=== PATIENT | male | born 1940 | race Caucasian/White ===

== ENCOUNTER → 2017-12-19 16:23 | Outpatient (CLI) | payer MEDICARE, BC, SELFPAY ==
[2017-12-19 17:28] LABS: Blood Urea Nitrogen 20 mg/dL (9-20); Calcium 9.8 mg/dL (8.4-10.2); Carbon Dioxide 32 mmol/L (22-32); Chloride 98 mmol/L (98-107); Estimated Glomerular Filt Rate > 60.0 mL/min (>60); Glucose 101 mg/dL (80-110); HEMOLYSIS < 15 (0-50); Potassium 5.3 mmol/L (3.4-5.1); Sodium 139 mmol/L (137-145)
== END ==
PROVIDERS: Visit Provider Urology
DX: N30.90 Cystitis, unspecified without hematuria (principal)
CPT/HCPCS: 36415; 80048

== ENCOUNTER → 2017-12-21 08:10 | Outpatient (CLI) | payer MEDICARE, BC, SELFPAY ==
--- NOTE | 2017-12-21 | DI.CT.S_ITS ---
PROCEDURE: CT ABDOMEN PELVIS WO/W CON INDICATIONS: CYSTITIS, BLADDER INECTIONS TECHNIQUE: Optional 5 mm thick noncontrast images acquired from the diaphragm to the symphysis pubis. After the administration of intravenous contrast, 5 mm thick images acquired from the diaphragm to the symphysis pubis after a 10-minute delay. 2 mm thick coronal and sagittal reformats were then performed of the kidneys and ureters. For radiation dose reduction, the following was used: automated exposure control, adjustment of mA and/or kV according to patient size. COMPARISON: [facility], CR, XR PELVIS W LATERAL HIP RT, 06/19/2016, 7:40. FINDINGS: Image quality: There is streak artifact seen through the pelvis. Additional reformatted images were performed of the pelvis, limiting the streak artifact, however. Lung bases: Lung bases are clear. Heart size is normal. A small hiatal hernia is incidentally noted. Urinary system: Both kidneys are normal in size, without hydronephrosis or nephrolithiasis on pre-contrast images. No perinephric fat stranding. There is normal bilateral renal enhancement. Renal calyces appear normal in morphology when filled with contrast. Opacified portions of both ureters demonstrate normal caliber. Mild bladder wall thickening is seen. No calcified bladder stones are seen. Other solid organs: Liver is normal in size and enhancement. Gallbladder wall is not thickened. Biliary system is non dilated. Pancreas enhances normally. Spleen is normal in size and enhancement. No adrenal nodules. Peritoneum and bowel: Bowel loops demonstrate normal wall thickness and caliber. No free fluid or air. Diverticulosis is seen, without findings of active diverticulitis. Nodes and vessels: No retroperitoneal or mesenteric adenopathy by size criteria. Aorta and inferior vena cava are normal in size. Abdominal wall: A mild periumbilical hernia is seen, containing fat. Pelvis: No pathologic free pelvic fluid. No significant inguinal hernias or adenopathy. Injection granulomas are seen involving the buttocks. Bones: No suspicious bony lesions. No vertebral body compression fractures. 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 Age-appropriate bony degenerative changes are seen, which are most prominent at the L4-L5 level. There is partial fusion of the sacroiliac joints seen, right worse than left. IMPRESSION: Mild urinary bladder wall thickening is seen. Please correlate with cystitis versus bladder obstruction. No stones or hydronephrosis can be seen. No kidney masses are seen. Incidental note is made of: Small hiatal hernia Fat-containing periumbilical hernia Diverticulosis is seen, without findings of active diverticulitis. Focal L4-L5 degenerative change Bilateral hip arthroplasties Injection granulomas Dictated by: Sly Brown M.D. on 12/21/2017 at 9:02 Approved by: Sly Brown M.D. on 12/21/2017 at 9:08
== END ==
PROVIDERS: Visit Provider Urology
DX: N30.90 Cystitis, unspecified without hematuria (principal); K44.9 Diaphragmatic hernia without obstruction or gangrene; K42.9 Umbilical hernia without obstruction or gangrene; K57.90 Diverticulosis of intestine, part unspecified, without perforation or abscess without bleeding; Z96.643 Presence of artificial hip joint, bilateral
CPT/HCPCS: 74178; Q9967

== ENCOUNTER → 2020-12-08 10:47 | Outpatient (CLI) | payer MEDICARE, BC, SELFPAY | PROVIDERS: PCP Internal Medicine; Referring Provider Orthopaedic Surgery Orthopaedic Surgery of the Spine; Visit Provider Orthopaedic Surgery Orthopaedic Surgery of the Spine | DX: Z01.818 Encounter for other preprocedural examination (principal); Z01.812 Encounter for preprocedural laboratory examination; Z51.81 Encounter for therapeutic drug level monitoring | CPT/HCPCS: 93005 ==

== ENCOUNTER → 2021-01-07 10:41 | Outpatient (CLI) | payer MEDICARE, BC, SELFPAY ==
[2021-01-07 13:28] LABS: COVID19 -Nasal RAPID Negative (Negative)
== END ==
PROVIDERS: PCP Internal Medicine; Visit Provider Nurse Practitioner
DX: Z20.822 Contact with and (suspected) exposure to COVID-19 (principal); Z01.812 Encounter for preprocedural laboratory examination
CPT/HCPCS: 87635; C9803

== ENCOUNTER 2021-01-10 06:06 | Inpatient (IN) | payer MEDICARE, BC, SELFPAY ==
[2021-01-03 13:54] VITALS: BMI 38.5
[2021-01-10] VITALS (17 sets, daily range): BP systolic 114–164; BP diastolic 56–91; PULSE 73–82; RESP 10–19; TEMP 35.7–36.7; O2SAT 91–99; BMI 38.0
[2021-01-10] MEDS: LACTATED RINGERS 1,000 ML 42 ML IV ×3 (07:11→12:03)
[2021-01-10] MEDS: ACETAMINOPHEN 325 MG TABLET 975 MG PO (07:15)
--- NOTE | 2021-01-10 07:46 | PM.PREOP ---
Pre-operative Note COVID-19 COVID-19 status: Negative Result date/Date tested (Pos, Neg/Pending): 01/08/21 Interval Note History & Physical reviewed/Exam performed by Physician: Yes Changes to H&P: No
--- NOTE | 2021-01-10 07:47 | SUR.OPER ---
Prone on spine table, head in foam head support, padded chest and pelvic supports, gel pad at knees, lower legs supported by pillows; nipples, genitalia and toes free of pressure, arms secured on foam padded arm boards at <90 degrees abduction. Tape over blanket at thigh secured to table.
[2021-01-10] MEDS: CEFAZOLIN 1 GM VIAL 2 GM IV ×3 (08:20→23:41)
[2021-01-10] MEDS: BUPIVACAINE LIPOSOME 266 MG/20 ML VIAL INJ (08:46)
[2021-01-10] MEDS: BUPIVACAINE 0.25% (PF) VIAL 30 ML INJ (08:47)
[2021-01-10] MEDS: EPINEPHrine 1 MG/ML 0.15 MG INJ (08:48)
--- NOTE | 2021-01-10 12:09 | P.OP_ITS ---
Operative Date/Time/Diagnoses Date of procedure: 01/10/21 Time of procedure: 08:00 Pre-op diagnosis: 1. L3-4, L4-5 spinal stenosis with radiculopathy 2. 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 Lumbar scoliosis Post-op diagnosis: same Procedure & Clinicians Procedure: 1. L3-4, L4-5 Postero-lateral and posterior interbody fusion 2. L3-4, L4-5 interbody cage placement. 3. L3-4, L4-5 decompressive laminectomy with bilateral facetecomies 4. L3-4, L4-5 Posterior segmental instrumentation 5. [place] of bone marrow from iliac crest 6. Utilization of microsurgical technique and operating microscope Same procedure as scheduled: Yes Indications: Patient has been having chronic back pain and worsening lumbar radiculopathy. Patient failed multiple conservative management with worsening pain weakness and numbness in her lower extremity. Patient has been having difficulty performing activity of daily living. After discussing risks benefits of treatment options, patient elected proceed with surgery. Surgeon: Isabela Vazquez General House Worker: Franny Tamayo Click Yes if Unassisted: No Anesthesia Type: General Operative Notes Closure Type: primary Specimen(s): none sent Prosthetic devices, grafts, tissues, transplants, or devices: Globus revolve screws, Rise cages Applied: catheter Estimated Blood Loss (mL): 300 Blood products transfused: none Procedure in detail: Patient was seen in the preoperative area. Risks and benefits of the surgery was discussed with the patient. Informed consent was obtained from the patient and placed in the chart. Surgical site was marked. Patient was taken to the operative room. General anesthesia was administered. Prophylactic antibiotic was given to the patient less than 30 min before the incision was made. Patient was placed into a prone position on the Adiel table . Patient's back was then prepped and draped in the sterile fashion. Time-out was performed at this time. Using AP and lateral C-arm imaging the interval between L3-4, L4-5 was identified and marked on patient's back. A 2 inch incision 2 in from midline was made on the right side first. The fascia was incised in line with skin incision. Globus MARS retractors was placed inside the incision and docked onto the L3 and L4 lamina. Using microsurgical technique and operating microscope, a L3 and L4 laminectomy and L3-4, L4-5 facetectomy was performed using a Kerrison rongeur. Patient was found have severe central and neural foraminal stenosis at both levels. The stenosis was fully decompressed after the laminectomy and facetectomy was completed. The decompression rendered the L3-4 L4-5 grossly unstable and require fusion procedure at the same time. The disc space at L3-4, L4-5 was identified. And a total diskectomy was performed at L3-4, L4-5 level. The endplates were decorticated using a rasp and shaver. The total diskectomy and decortication was performed at L3-4, L4-5 level in order to to accomplish a L3-4, L4-5 fusion. The local bone from the laminectomy and facetectomy was saved for local bone grafting. After the total diskectomy and decortication was completed, Trifecta bone graft material was combined with local bone that was harvested earlier. At this time, a separate skin is incision was made over the iliac crest. A Jamshidi needle was inserted into the iliac crest through a separate skin incision. 5 cc of bone marrow aspiration was obtained through the separate skin incision using a Jamshidi needle from the iliac crest. The bone marrow aspiration was combined with local bone and the Trifecta bone grafting material. The bone grafting material was placed into the L3-4, L4-5 interbody space along with two cages, one expandable cage at each level. The cages were expanded to their maximum height using the torque limiting screwdriver. At this time a mirror image incision was made on the left side. The fascia was incised in line with the skin incision. Globus MARS retractor was inserted and docked onto the L3-4, L4-5 posterolateral gutter. Using the power drill, posterior-lateral decortication was performed at L3-4, L4-5 level until bleeding cortical bone was identified. The remaining bone grafting material was placed into the L3-4, L4-5 posterior lateral gutter he order to accomplish posterolateral fusion at the L3-4, L4-5 levels. Using the double C-arm technique, pedicle screws were placed into the L3, L4, L5 pedicles bilaterally. This was done by placing the Jamshidi needle into the pedicles, then placing the guidewires over the Jamshidi needle, and finally placing the cannulated screws over the guidewires bilaterally. After the pedicle screws were placed, 2 titanium rods was locked into the heads of the pedicle screws using locking caps and torque limiting screwdriver. Total 6 pedicles screws were placed. After all the hardware was placed, and confirmed with AP and lateral C-arm imaging, the wound was then irrigated with sterile normal saline and packed with Ray-Aundrea gauze for 3 min to accomplish hemostasis. After the gauze was removed the deep fascia was closed with #1 Vicryl suture. The subcutaneous layer was closed with 2-0 Vicryl. The skin was closed with skin vee. Patient tolerated the procedure well. There were no complications. Complications: none Post-operative Condition: stable Disposition: PACU Plan for aftercare: Admit to inpatient hospital
--- NOTE | 2021-01-10 12:16 | DI.RAD.S_ITS ---
PROCEDURE: XR LUMBAR SPINE 2-3V INDICATIONS: L3-4, L4-5 TLIF TECHNIQUE: 2 intraoperative fluoroscopic spot films were obtained COMPARISON: None. FINDINGS: Two low resolution fluoroscopic spot films of lower lumbar spine shows L3-4 and L4-5 interbody fusion graft and associated posterior reji and screw instrumentation in good position. IMPRESSION: Intraoperative fluoroscopic guidance Approved by: Maciej Wolfe M.D. on 01/10/2021 at 12:09
[2021-01-10] MEDS: hydrOXYzine 50 MG/ML INJ 25 MG IM (12:30)
[2021-01-10] MEDS: OXYCODONE IR 5 MG TABLET PO (12:30)
[2021-01-10] MEDS: fentaNYL 100 MCG/2 ML INJ IV ×2 (12:38→12:52)
[2021-01-10] MEDS: LORazepam 2 MG/ML INJ 0.25 MG IV (12:54)
[2021-01-10] MEDS: SODIUM CHLORIDE 0.9% 1,000 ML 100 ML IV ×2 (14:00→23:41)
--- NOTE | 2021-01-10 14:52 | PC.NURSE ---
Patient brought up to room 217 from PACU approx 1335 today, alert and oriented, awake and appropriate but easily falling asleep. Dressing to back upon arrival with moderate bloody drainage reinforced and will continue to monitor. VSS, on 2L nc. Denies shortness of breath. Oriented to room and call light, bed alarm activated for safety. Call light within reach.
[2021-01-10] MEDS: OXYCODONE IR 5 MG TABLET 10 MG PO ×2 (16:46→22:06)
[2021-01-10] MEDS: hydrOXYzine pamoate 25 MG CAPSULE PO ×2 (16:47→22:04)
--- NOTE | 2021-01-10 16:54 | PC.NURSE ---
Addendum entered by Audrey Meraz R.N. 01/10/21 19:25: 1830 Franny SIMPSON from ortho here to change drsg to low back that has become saturated. may need to change again or reinforce with 4x4 and ABD pad. Addendum entered by Audrey Meraz R.N. 01/10/21 17:48: Pt sitting up in bed for dinner, pain level 4/10. Dr. Vazquez out of surgery and notified of pt drsg sat and dinner plate size bloody drainage on blue pad Original Note: Pt sleepy easily aroused c/o pain 6/10 medicated with oxy 10 and vistaril 25mg po. log rolled pt drsg sat and intact as given in report, cms intact taking ice water without c/o in room
[2021-01-10] MEDS: DOCUSATE 100 MG CAPSULE PO (22:02)
[2021-01-10] MEDS: SENNOSIDES 8.6 MG TABLET 17.2 MG PO (22:04)
[2021-01-11] VITALS: BP 143/78; PULSE 78; RESP 18; TEMP 36.6; O2SAT 95
[2021-01-11] MEDS: OXYCODONE IR 5 MG TABLET 10 MG PO (03:27)
[2021-01-11 04:13] VITALS: BP 135/62; PULSE 75; RESP 19; TEMP 36.6; O2SAT 96
[2021-01-11] MEDS: PANTOPRAZOLE DR 40 MG TABLET PO (05:59)
[2021-01-11 07:07] LABS: Hematocrit 30.7 % (41-53); Hemoglobin 10.6 g/dL (13.5-17.5)
[2021-01-11] MEDS: DOCUSATE 100 MG CAPSULE PO ×2 (08:59→20:59)
[2021-01-11] MEDS: DOXAZOSIN 2 MG TABLET PO (08:59)
[2021-01-11] MEDS: ACETAMINOPHEN 325 MG TABLET 650 MG PO ×3 (08:59→20:58)
--- NOTE | 2021-01-11 10:11 | OT.IP.EVAL ---
Current Diagnoses Other spondylosis with radiculopathy, lumbosacral region (01/10/21) Spinal stenosis, lumbar region with neurogenic claudication (01/10/21) Surgery Performed Operation Date: 01/10/21 07:45 Actual Procedures p L3-4, L4-5 TLIF w. posterior instrumentation - Isabela Vazquez MD Past Medical History (Last Reviewed 01/11/21 @ 10:59 by Braeden Sampson PA-C) Arthritis Heart murmur Hiatal hernia History of bilateral carpal tunnel release History of ear surgery (12/21/20) History of vasectomy HTN (hypertension) Hx of bilateral hip replacements Hx of foot surgery Hx of repair of right rotator cuff Impaired hearing SUNDAY on CPAP Osteoarthritis Polyneuropathy S/P left unicompartmental knee replacement Skin cancer Surgical History (Last Reviewed 01/11/21 @ 10:59 by Braeden Sampson PA-C) History of bilateral carpal tunnel release History of ear surgery (12/21/20) History of vasectomy Hx of bilateral hip replacements Hx of foot surgery Hx of repair of right rotator cuff S/P left unicompartmental knee replacement Occupational Therapy Inpatient Evaluation/Re-Eval M1 PT/OT-IP Prior Functional Status Start: 01/11/21 12:46 Freq: NEEDED Status: Active Protocol: Document 01/11/21 12:46 [facility] (Rec: 01/11/21 13:03 [facility] [id number]) Medical Review Prior Functional Status Medical History Reviewed Yes Communication Independent Mobility and Gait Pt states just prior to surgery was walking with his walking stick and only could wakk 50 ft before having too much pain. Activities of Daily Living and IADL's Pt able to do ADl and IADl needs, however was is pain. Prior Functional Level (Other details) Pt states his is able to do minimal lifting. Pt states has a wide FWW at home to use. Social History Household Members spouse Living Arrangements House Number of Stairs To Enter/Railing? 3 steps with left rail going up. 10 steps with right rail and then landing and another 6 steps with right rail going up to the bedroom. There are 2 steps from the main living area down to the kitchen/dining area with left rail going down. Home Environment High Toilet,Walk in Shower Home Equipment Front Wheel Walker,Straight Cane,Raised Toilet Seat w/ Armrests,Shower Seat with Backrest,Hand Held Shower, Clip Wrapper,Sock Aid,Grab Bars In Shower Additional Social History Comment Pt states to sleep in his recliner initially and stay on the main level for now. M2 OT-IP Current Condition Start: 01/11/21 12:46 Freq: Status: Active Protocol: Document 01/11/21 12:46 [facility] (Rec: 01/11/21 13:03 [facility] [id number]) Occupational Therapy Current Condition Current Condition Evaluation Date 01/11/21 Treatment Diagnosis S/p L3-4, L4-5 TLIF Diagnosis Onset Date 01/10/21 Post Operative Precautions Lumbar Precautions Log Roll,No Twisting,Limit Bending,Lifting Restriction of 10 lbs,Gait Belt above Incisional Area M3 OT- IP Subjective and Pain Start: 01/11/21 12:46 Freq: Status: Active Protocol: Document 01/11/21 12:46 [facility] (Rec: 01/11/21 13:03 [facility] [id number]) OT- Subjective Occupational Therapy Visit Type Type Initial Evaluation Visit Start Time 09:13 Visit Stop Time 10:11 Total Visit Minutes 58 Occupational Therapy Visit Comments Patient Comments Pt agreed to get up for Ot eval. Patient/Caregiver Goals To go home. OT Pain Assessment Pain When Pain Assessed During Mobility Pain Present Pain Present Pain Reported Location back Intensity 1 Scale Used Numeric (0 - 10) M4 OT- IP ADL's Start: 01/11/21 12:46 Freq: Status: Active Protocol: Document 01/11/21 12:46 [facility] (Rec: 01/11/21 13:03 [facility] [id number]) OT PKK-Inaw-Tfcgeiz General Evaluation Self-Feeding Ability Independent OT ADL-Grooming General Evaluation Grooming Ability Standby Assistance Areas Needing Assistance Retrieving/Set-up of Grooming Items OT ADL-Oral Care General Eval Oral Care Ability Independent Comments Oral Care Comments Educated to spit in to a cup or hinge at his hips to lean to spit into the sink. In addition cued pt to bring one foot back to increased ease to hinge at his hips. 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 OT ADL-Toileting Comments OT Toileting Comments Pt had catheter in place. Pt states leans to his side to wipe. Not able to practice at this time. Educated that wet wipes will also assist to increased his ease for hygiene needs. OT ADL-Bathing Comments OT Bathing Comments NOt at this time. Pt would benefit from a long handled brush. M5 OT- IP IADL's Start: 01/11/21 12:46 Freq: Status: Active Protocol: Document 01/11/21 12:46 [facility] (Rec: 01/11/21 13:03 [facility] [id number]) OT-Instrumental Activities of Daily Living Home Safety Awareness Awareness of Need for Assistance at Home Good Awareness Ability to Problem Solve Emergency Able to Problem Solve Situations Medication Management Medication Management Comments Pt states his will be able to assist with all his needs if needed. Money Management Money Management Comments Pt states his will be able to assist with all his needs if needed. Meal Preparation Meal Preparation Comments Pt states his will be able to assist with all his needs if needed. Butcher Head Butcher Head Comments Pt states his will be able to assist with all his needs if needed. M6 OT- IP Functional Cognition Start: 01/11/21 12:46 Freq: Status: Active Protocol: Document 01/11/21 12:46 [facility] (Rec: 01/11/21 13:03 [facility] [id number]) Cognitive Factors Limiting Selfcare Function Cognitive Ability Level of Alertness Alert Patient Orientation Name,Age,Birthday,Month,Date, Year,Day of Week,Place, Situation Attention Span Ability Capable of Focused Attention, Capable of Sustained Attention Ability to Follow Commands Able to Follow One Step Commands Problem Solving Ability Needs Assist to Identify Solutions Cognitive Comments Cognitive Assessment Comments Pt able to follow commands appropriate for his back precautions during ADl and mobility needs. Continue to assess cognitive needs as pt currently just taking Tylenol for pain. OT- Vision and Hearing OT- Hearing Assessment OT- Hearing Assessment Hearing Impaired,Use of Hearing Aids OT- Vision Assessment Visual Acuity Glasses All The Time Vision Assessment Comments Pt does not have his hearing aids in. M7 OT- IP Mobility and Balance Start: 01/11/21 12:46 Freq: Status: Active Protocol: Document 01/11/21 12:46 [facility] (Rec: 01/11/21 13:03 [facility] [id number]) OT- Bed Mobility Assessment Rolling Type of Rolling Roll to Right Level of Assistance Maximum Assistance Supine to Sit Supine to Sit Assist Moderate Assistance OT-Transfer Assessment Sit to and From Stand Sit to and from Stand Minimal Assistance Transfers Transfer Ability Contact Guard Assistance Technique Transfer Destination Bed,Car Transfer Technique Stand Step Pivot Devices Transfer Assistive Devices Gait Belt,Front Wheeled Walker Comments Mobility Comments Brought a wide FWW for pt to use. M8 OT- IP Objective Assessments Start: 01/11/21 12:46 Freq: Status: Active Protocol: Document 01/11/21 12:46 [facility] (Rec: 01/11/21 13:03 [facility] [id number]) OT-Muscle Tone Assessment Muscle Tone WNL Yes M9 OT- IP Assessment and Plan Start: 01/11/21 12:46 Freq: Status: Active Protocol: Document 01/11/21 12:46 [facility] (Rec: 01/11/21 13:03 [facility] [id number]) OT Summary Assessment and Plan Potential Rehabilitation Potential Good Analytic Complexity at Evaluation Low Summary OT Impairments Pain,Balance,Functional Mobility,Dressing,Toileting, Bathing,Toilet Transfers, Shower Transfers Progress Towards Goals Progressing Toward Goals Assessment Summary Pt low complexity and main barriers are steps and that his will be only able to do minimal lifting with pt, and that pt is now needing one person assist for needs. Pt however plans to sleep in a recliner and therefore will need less help to come to stand versus bed mobility. Pt to go home with assist when medically stable. Goals Grooming Goal Independent Dressing Goal Minimal Assistance Toileting Goal Independent Bathing Goal Standby Assistance Toilet Transfer Goal Independent Shower Transfer Goal Standby Assistance Patient/Caregiver Education Goal Caregiver Independent Assisting Patient Days to Meet Goals 3 Frequency of Treatment Frequency Of Treatment Once a Day Treatment Plan OT Treatment Plan ADL Training,Functional Mobility,Patient/Family Education,Discharge Planning Other Treatment Recommendations and Next Shower and caregiver training Treatment Focus as needed. Discharge Recommendations OT Discharge Recommendations Home with Assistance Home Equipment Needs long handled sponge Transportation Needs at Discharge Private Vehicle
[2021-01-11 10:19] VITALS: BP 122/52; PULSE 75; RESP 15; TEMP 37; O2SAT 95
--- NOTE | 2021-01-11 10:22 | PC.NURSE ---
Addendum entered by Ila Cabral R.N. 01/11/21 13:42: Patient is a one person assist from chair to bed with walker. Sierra catheter taken out and he had 600cc of yellow urine out. Urinal given to patient. He tolerated sierra removal well. To give patient some tylenol for discomfort when it is time. Resting comfortably. Original Note: Assess- Patients dressing to lower back is cdi. He states that his pain is a 2/10 and given tylenol. Sitting up in the chair and comfortable. [facility] wnl, patient states that he does have numbness in his hands but this is not new.
--- NOTE | 2021-01-11 10:30 | PT.IIE ---
Current Diagnoses Other spondylosis with radiculopathy, lumbosacral region (01/10/21) Spinal stenosis, lumbar region with neurogenic claudication (01/10/21) Surgery Performed Operation Date: 01/10/21 07:45 Actual Procedures p L3-4, L4-5 TLIF w. posterior instrumentation - Isabela Vazquez MD Medical History (Last Reviewed 01/11/21 @ 10:59 by Braeden Sampson PA-C) Arthritis Heart murmur Hiatal hernia HTN (hypertension) Impaired hearing SUNDAY on CPAP Osteoarthritis Polyneuropathy Skin cancer Physical Therapy Inpatient Evaluation/Re-Eval M1 PT/OT-IP Prior Functional Status Start: 01/11/21 12:46 Freq: NEEDED Status: Active Protocol: Document 01/11/21 12:46 [facility] (Rec: 01/11/21 13:03 [facility] [id number]) Medical Review Prior Functional Status Medical History Reviewed Yes Communication Independent Mobility and Gait Pt states just prior to surgery was walking with his walking stick and only could wak 50 ft before having too much pain. Activities of Daily Living and IADL's Pt able to do ADl and IADl needs, however was is pain. Prior Functional Level (Other details) pt states his is able to do minimal lifting. Pt states has a wide FWW at home to use. Social History Household Members spouse Living Arrangements House Number of Stairs To Enter/Railing? 3 steps with left rail going up. 10 steps with right rail and then landing and another 6 steps with right rail going up to the bedroom. There are 2 steps from the main living area down to the ktichen/dining area with left rail going down. Home Environment High Toilet,Walk in Shower Home Equipment Front Wheel Walker,Straight Cane,Raised Toilet Seat w/ Armrests,Shower Seat with Backrest,Hand Held Shower, Torpedo Shooter,Sock Aid,Grab Bars In Shower Additional Social History Comment Pt states to sleep n his recliner initially and stay on the main level for now. M2 PT-IP Current Condition Start: 01/11/21 12:56 Freq: NEEDED Status: Active Protocol: Document 01/11/21 10:30 AB (Rec: 01/11/21 13:17 AB [email or web address]) Physical Therapy Current Condition Current Condition Evaluation Date 01/11/21 Treatment Diagnosis s/p L3-4,L4-5 fusion/ instrumentation; difficulty in walking Onset Date 01/10/21 Precautions Lumbar Precautions Log Roll,No Twisting,Limit Bending,Lifting Restriction of 10 lbs,Gait Belt above Incisional Area M3 PT-IP Subjective Start: 01/11/21 12:56 Freq: NEEDED Status: Active Protocol: Document 01/11/21 10:30 AB (Rec: 01/11/21 13:17 AB [email or web address]) Subjective Physical Therapy Visit Type Type Initial Evaluation Visit Start Time 10:30 Visit Stop Time 11:05 Total Visit Minutes 35 Number of CARE TRANSITIONS MANAGER Visits 0 Physical Therapy Visit Comments Patient Comments agreed to do PT Therapy Pain Assessment Pain When Pain Assessed During Mobility Pain Present Pain Present Pain Reported Location back Intensity 2 Pain Management Techniques Apply Cold,Distraction, Modification of Treatment,Re- positioning,Timing of Activity with Medications M4 PT-IP Mobility and Gait Start: 01/11/21 12:56 Freq: NEEDED Status: Active Protocol: Document 01/11/21 10:30 AB (Rec: 01/11/21 13:17 AB [email or web address]) PT-Bed Mobility Assessment Rolling Type of Rolling Log Rolling Level of Assist Standby Assistance Supine to Sit Supine to Sit Standby Assistance Sit to Supine Sit to Supine Standby Assistance PT-Transfer Assessment Sit to and From Stand Sit to and from Stand Standby Assistance,Contact Guard Assistance,1 Person Assistance Equipment Transfer Assistive Device Gait Belt,Front Wheeled Walker Orthotic/Prosthetic Devices or Brace: No Transfers Transfer Destination Bed,Chair Transfer Technique ambulated using FWW Transfer Ability Level of Assist Standby Assistance,Contact Guard Assistance,1 Person Assistance,Use of Upper Extremities Comments Mobility Comments pt able to recall back precautions. completed sit to stand from the chair CGA and ambulated in room using FWW CGA ~ 20 ft. ambulated to the bed and demonstrated log roll sit<>supine SBA. completed sit to stand SBA and back on the chair and rested. pt agreed to walk in the hallway and do stairs. completed sit to stand from the chair SBA and ambulated using fWW SBA ~ 150 ft. completed up/down steps using L rail sBA. pt holding on with B hands on rails. completed again but holding on to R rail SBA. pt ambulated back to his room using FWW SBA. agreed to stay up on chair. positioned pt on the chair. call light and table placed within reach. Gait Assessment Gait Gait Assistance Required: Standby Assistance,Contact Guard Assist Distance (Feet) 150 Able to Maintain Weight Bearing Status Yes During Gait Assistive Devices Assistive Device Gait Belt,Front Wheeled Walker Orthotic/Prosthetic Devices or Brace: No Gait Deviations General Gait Pattern Antalgic,Decreased Stride Length,Decreased Feet Clearance Factors Limiting Gait Function Factors Limiting Gait Function Decreased Activity Tolerance, Decreased Strength,Limited Range of Motion,Pain,Poor Balance,Poor Safety Awareness Comments Gait Comments pls refer to mobility section for details Stair Climbing Assessment Evaluation Level of Assist On Stairs Standby Assistance Devices Stair Climbing Assistive Devices Left Railing,Right Railing Technique/Endurance Stair Climbing Direction Ascend and Descend Stair Climbing Technique Step to Step Number of Steps Climbed 3 Query Text: Stair Climbing Set # Repetitions (reps) 2 Comments Stair Climbing Comments pls refer to mobility section for details PT-Balance Assessment Sitting Balance and Reactions Static Sitting Balance Ability Good Dynamic Sitting Balance Ability Good Standing Balance and Reactions Static Standing Balance Ability Fair Dynamic Standing Balance Ability Fair Device Used FWW M5 PT-IP Objective Assessments Start: 01/11/21 12:56 Freq: NEEDED Status: Active Protocol: Document 01/11/21 10:30 AB (Rec: 01/11/21 13:17 AB [email or web address]) Orientation Orientation/Cognition Level of Alertness Alert Orientation Name,Place,Situation Language Function Ability No Deficits Noted Safety Awareness Understands Safety Issues Memory Description No Deficits Noted Gross Range of Motion Lower Extremity ROM Assessment Within Functional Limits Strength Lower Extremity Strength Assessment Within Functional Limits Coordination Assessment Gross Coordination Gross Coordination WNL Sensation Assessment Comments Sensation Comments chronic numbness on B feet per pt Muscle Tone Muscle Tone WNL Yes M6 PT-IP Treatment Start: 01/11/21 12:56 Freq: NEEDED Status: Active Protocol: Document 01/11/21 10:30 AB (Rec: 01/11/21 13:17 AB [email or web address]) Physical Therapy Treatment Education Education Provided Precautions,Weight Bearing Status,Post-Op Packet,Safety M7 PT-IP Assessment and Plan Start: 01/11/21 12:56 Freq: NEEDED Status: Active Protocol: Document 01/11/21 10:30 AB (Rec: 01/11/21 13:17 AB [email or web address]) PT Summary Assessment and Plan Potential Rehabilitation Potential Good Status of Condition at Evaluation Stable Summary Impairments Pain,ROM,Strength,Balance, Coordination,Sensation,Tone, Cognition,Bed Mobility, Transfers,Gait,Activity Tolerance Assessment Summary pt requiring SBA with mobility and plans to go home with spouse to assist him. pt may go home when medically stable. Goals Bed Mobility Goal Independent Transfer Goal Independent,Front Wheeled Walker Gait Goal Independent,Front Wheel Walker Gait Distance 200 Other Goals up/down 3 steps L rail ascending mod I up/down 16 steps R rail ascending SBA Days to Meet Goals 5 Frequency of Treatment Frequency Of Treatment Twice a Day Treatment Plan Physical Therapy Treatment Plan Bed Mobility Training,Transfer Training,Gait Training, Therapeutic Exercise,Balance Retraining,Post Op Education, Discharge Planning,Hot or Cold Pack,Neuromuscular Re-ed, Coordination Retraining,Manual Therapy Precautions Lumbar Precautions Log Roll,No Twisting,Limit Bending,Lifting Restriction of 10 lbs,Gait Belt above Incisional Area Recommendations To Nursing Amount of Assist Needed Standby Assistance Discharge Recommendations PT Discharge Recommendations Home with Assistance Transportation Needs at Discharge Private Vehicle
--- NOTE | 2021-01-11 10:58 | PM.PNPO.1 ---
Subjective Subjective Date Patient Seen: 01/11/21 Time Patient Seen: 10:58 Interval history: Patient's pain is been moderate to severe. Denies fever or chills. No nausea or vomiting. Patient's is home to assist him however would be limited in her ability particularly since his BMI is 38. Exam Vital Signs (past 8 hours): - 01/11/21 04:13 01/11/21 10:19 Temperature 98 F 98.6 F Pulse Rate 75 75 Respiratory Rate 19 15 Blood Pressure 135/62 122/52 L Pulse Oximetry 96 95 Oxygen Delivery Method Room Air Oxygen Flow Rate 0 Narrative Exam Narrative: 80-year-old male walking in [place] with physical therapy using a walker. Dressing recently in the changed due to being saturated currently Clean, dry, intact.. Objective Labs Result Diagrams: 01/11/21 06:50 Labs: Laboratory Results - last 24 hr 01/11/21 06:50 Hgb 10.6 L Hct 30.7 L PFSH Medical History Arthritis Heart murmur Hiatal hernia HTN (hypertension) Impaired hearing SUNDAY on CPAP Osteoarthritis Polyneuropathy Skin cancer Surgical History History of bilateral carpal tunnel release History of ear surgery (12/21/20) History of vasectomy Hx of bilateral hip replacements Hx of foot surgery Hx of repair of right rotator cuff S/P left unicompartmental knee replacement Social History household members: spouse Smoking Status: Never smoker alcohol intake: current Assessment & Plan Post-op Postoperative Procedures: Procedures Operation Date: 01/10/21 07:45 Actual Procedure Side Surgeon p L3-4, L4-5 TLIF w. posterior instrumentation Isabela Vazquez MD Postoperative status: doing well Postoperative status narrative: Stable Postoperative plan narrative: Continue to work on pain control. Mobilize with physical therapy Limit bending, twisting, lifting Disposition home likely 1-2 days.
[2021-01-11 11:35] VITALS: BP 135/59; PULSE 80; RESP 15; TEMP 37.2; O2SAT 94
--- NOTE | 2021-01-11 11:51 | CM.DANOTE ---
Patient is a 80 yo male who was admitted on 01/10/21 for TLIF. Pt has MCR and BCBS OUT [place] for insurance and his PCP is Dr. Hedy Vilchis. EMR was reviewed. Per Ortho, pt tolerated procedure well and anticipate pt to likely d/c home in 1-2 days. Per PT/OT, pt was mostly CGA and has spouse bedside for CG training and recommend home with outpt PT. SW met bedside with pt and spouse and explained role and they confirm that they live at home in [place] and pt is active and independent at baseline and drives but has had increased pain prior to back surgery that had begun to limit him. Spouse confirms that she is not working and available for / assist and does not anticipate d/c needs and can provide transport at d/c. Pt denies any hx of HH or SNF. Plan: SW to follow for further PT/OT and plan of home with spouse assist and outpt PT and any further identified needs. REMINGTON Allen Discharge Planning/Care Management CM Discharge Assessment Start: 01/11/21 11:49 Freq: Status: Active Protocol: Document 01/11/21 11:50 BF (Rec: 01/11/21 11:51 BF [id number]) Discharge Planning Assessment Assigned Accounting Reconciliation Clerk REMINGTON Kay DPOA/Assigned Designee Name spouse Suzette Contact Information [phone] Advance Directives? Yes Advance Directives on File Yes History Provided By Patient,Significant Other, Medical Record Has Patient been admitted in last 30 No days? Prior Living Arrangements Apartment/Condo Household Members spouse Type of transporation used prior to Drives own vehicle admit Independent with ADL's Yes Is patient alert and oriented? Yes Caregiver for Another No Community Services used prior to Physical Therapy admission: DME Already Rented / Owned Cane Patient/Family Preference OP PT Therapy Barriers to Discharge No Discharge Plan Home Community Services Physical Therapy Transportation Arrangement Spouse bedside and can transport at d/c Referrals Initiated None needed Whiteboard Updated in Patient Room with Yes name and ext. # of Accounting Reconciliation Clerk Review Status In Process Please Provide Date Initial DC 01/11/21 Assessment Was Performed Next Review Type Continued Stay Review Pre-Anesthesia Assessment Start: 01/03/21 13:54 Freq: Status: Active Protocol: Document 01/03/21 13:54 CAB (Rec: 01/03/21 14:41 CAB [id number]) Pre-Anesthesia Assessment PAC Comment CHLORHEXIDINE ALLERGY - RASH Patient Information Reviewed Via Phone Assessment Assessment Completed With Patient Diagnostic Results EKG Comment Outside labs scanned, EKG @ [facility] 12/08/20, COVID screen @ [facility]- needs to schedule Primary Care Provider Hedy Vilchis Seen Specialist in Last 12 Months Yes Specialist Seen Supervisor [employer],ENT,Tank Truck Engine Mechanic, Other Comment Neurology note 04/13/20 scanned Primary Language [place] Citizen Bus Dispatcher [place] Required No Height 182.88 cm Weight 128.82 kg Body Mass Index (BMI) 38.5 Hearing Ability Hard of Hearing,Use of Hearing Aid Visual Assist Glasses Dentition Type Teeth, Natural Present Barriers to Learning None Other Aids Yes: CPAP Hx Anesthesia Reactions No Hx Family Anesthesia Reaction No Hx Malignant Hyperthermia No Hx Blood Transfusions No Anesthesia Review Requested No alcohol intake current alcohol intake frequency 0-2 drinks per day Smoking Status Never smoker Substance Use Type does not use Pain Present Pain Reported Musculoskeletal Symptoms Abnormal Gait,Back Pain, Difficulty Walking,Muscle Cramps,Numbness,Radiating Pain into Limb,Tremors History of Falling (Recent or History of No ) Patient is completely paralyzed or No completely immobile Mental Status Oriented to own ability Comment Uses a walking stick Is patient on oxygen? No Does patient have ACEVEDO/SOB No Hx Sleep Apnea Yes CPAP/BIPAP use prescribed and used routinely Will Bring CPAP/BIPAP DOS Yes Currently Taking a Beta Fanny No Can You Climb a Flight of Stairs Without Yes SOB Hx Chest Pain No Hx SOB No Hx Syncope or Dizziness No Anti-Coagulant Therapy No Has a Supervisor [employer] Yes: Dr. Bai-last visit Cardiac Testing No Hx Pacemaker/ICD No Pacemaker Rep Required? No Cardiac Clearance Received Not Applicable Comment Cardiac records scanned Diet Type At Home Regular dysphagia No Urinary Catheter Present No Hx Urinary Self Catheterization No Diabetes No Hx Drug Resistant Organism No Presence of External or Internal Medical Yes: CPAP, bilat hip Devices prosthesis, left knee, left foot, right ear Have you had any close contact with No someone diagnosed with COVID-19? Received a COVID vaccine? Yes Received all doses? Yes Marital Status Lives With spouse Prior Living Arrangements Apartment/Condo Number of Floors (Floors) 3 or More Floors Support System Spouse Does the Patient Have Assistance After Yes Surgery Patient Discharge Plan Description Return Home Comment Pt advised 2 day length of stay per surgeon Feels Safe in Current Environment Yes Been Physically Hurt or Threatened By a No Person in Current Environment Do you have thoughts of harming yourself None or others? Are you currently considering suicide? No Do you have a plan to hurt yourself or No Plan others? Do You Have Any Spiritual Beliefs That No May Affect Your HC Choices? Do You Have Any Cultural Practices That No May Affect Your HC Choices? Who Can We Speak to About Patient's Care Family, friends Identifying Code for Release of Patient Declines to issue Information Health Care Proxy/Next of Kin Suzette () Health Care Proxy Emergency Contact Name Suzette () Emergency Contact Advance Directives? Yes Requested Patient Bring Advanced Yes Directives DOS Power of Signal Mechanic Yes Power of Signal Mechanic Name Suzette () Power of Signal Mechanic PAC Instructions Bring CPAP/BIPAP,Durable medical equipment,Medications to take/avoid,Nasal antibiotic ,No ETOH/petroleum product on skin DOS,NPO,Pre-surgical wash ,Sensory aids,Sturdy shoes/ comfortable clothes,Do not bring valuables and remove jewelry
[2021-01-11] MEDS: INFLUENZA HD VACCINE 0.7 ML SYRINGE IM (13:00)
--- NOTE | 2021-01-11 14:15 | PT.IPTN ---
Current Diagnoses Other spondylosis with radiculopathy, lumbosacral region (01/10/21) Spinal stenosis, lumbar region with neurogenic claudication (01/10/21) Surgery Performed Operation Date: 01/10/21 07:45 Actual Procedures p L3-4, L4-5 TLIF w. posterior instrumentation - Isabela Vazquez MD Physical Therapy Treatment Note M2 PT-IP Current Condition Start: 01/11/21 12:56 Freq: NEEDED Status: Active Protocol: Document 01/11/21 10:30 AB (Rec: 01/11/21 13:17 AB [id number]) Physical Therapy Current Condition Current Condition Evaluation Date 01/11/21 Treatment Diagnosis s/p L3-4,L4-5 fusion/ instrumentation; difficulty in walking Onset Date 01/10/21 Precautions Lumbar Precautions Log Roll,No Twisting,Limit Bending,Lifting Restriction of 10 lbs,Gait Belt above Incisional Area M3 PT-IP Subjective Start: 01/11/21 12:56 Freq: NEEDED Status: Active Protocol: Document 01/11/21 14:02 KS (Rec: 01/11/21 15:19 KS [id number]) Subjective Physical Therapy Visit Type Type Treatment Note Visit Start Time 14:02 Visit Stop Time 14:15 Total Visit Minutes 13 Number of STORE ASSOCIATE Visits 1 Physical Therapy Visit Comments Patient Comments agreed to do PT M4 PT-IP Mobility and Gait Start: 01/11/21 12:56 Freq: NEEDED Status: Active Protocol: Document 01/11/21 14:02 KS (Rec: 01/11/21 15:19 KS [id number]) PT-Bed Mobility Assessment Rolling Type of Rolling Log Rolling Level of Assist Standby Assistance Supine to Sit Supine to Sit Standby Assistance Sit to Supine Sit to Supine Standby Assistance PT-Transfer Assessment Sit to and From Stand Sit to and from Stand Standby Assistance,Contact Guard Assistance,1 Person Assistance Equipment Transfer Assistive Device Gait Belt,Front Wheeled Walker Orthotic/Prosthetic Devices or Brace: No Transfers Transfer Destination Bed Transfer Technique ambulated using FWW Transfer Ability Level of Assist Standby Assistance,Contact Guard Assistance,1 Person Assistance,Use of Upper Extremities Comments Mobility Comments Pt in bed upon arrival from therapy and able to recall 3/3 spinal precautions. SBA for logroll to R and sidelying<> sit as well as SBA for scooting EOB. SBA to CGA for sit<>stand w/ FWW. Pt denied lightheadedness. He then ambulated ~80 [address] in hallway w/ Fww and CGA. Pt ambulated w/ decreased stride length but demonstrated safe use of FWW. Pt retruned to room and bed. SBA for stand<>sit and CGA for sidelying<>sup/logroll back into bed. Pt left in bed w/ all needs in reach, bed alarm and SCDs on. Gait Assessment Gait Gait Assistance Required: Contact Guard Assist Distance (Feet) 80 Able to Maintain Weight Bearing Status Yes During Gait Assistive Devices Assistive Device Gait Belt,Front Wheeled Walker Orthotic/Prosthetic Devices or Brace: No Gait Deviations General Gait Pattern Antalgic,Decreased Stride Length,Decreased Feet Clearance Factors Limiting Gait Function Factors Limiting Gait Function Decreased Activity Tolerance, Decreased Strength,Limited Range of Motion,Pain,Poor Balance,Poor Safety Awareness Comments Gait Comments pls refer to mobility section for details PT-Balance Assessment Sitting Balance and Reactions Static Sitting Balance Ability Good Dynamic Sitting Balance Ability Good Standing Balance and Reactions Static Standing Balance Ability Fair Dynamic Standing Balance Ability Fair Device Used FWW M5 PT-IP Objective Assessments Start: 01/11/21 12:56 Freq: NEEDED Status: Active Protocol: Document 01/11/21 10:30 AB (Rec: 01/11/21 13:17 AB [id number]) Orientation Orientation/Cognition Level of Alertness Alert Orientation Name,Place,Situation Language Function Ability No Deficits Noted Safety Awareness Understands Safety Issues Memory Description No Deficits Noted Gross Range of Motion Lower Extremity ROM Assessment Within Functional Limits Strength Lower Extremity Strength Assessment Within Functional Limits Coordination Assessment Gross Coordination Gross Coordination WNL Sensation Assessment Comments Sensation Comments chronic numbness on B feet per pt Muscle Tone Muscle Tone WNL Yes M6 PT-IP Treatment Start: 01/11/21 12:56 Freq: NEEDED Status: Active Protocol: Document 01/11/21 14:02 KS (Rec: 01/11/21 15:19 KS [id number]) Physical Therapy Treatment Education Education Provided Precautions,Weight Bearing Status,Post-Op Packet,Safety M7 PT-IP Assessment and Plan Start: 01/11/21 12:56 Freq: NEEDED Status: Active Protocol: Document 01/11/21 14:02 KS (Rec: 01/11/21 15:19 KS [id number]) PT Summary Assessment and Plan Potential Rehabilitation Potential Good Status of Condition at Evaluation Stable Summary Impairments Pain,ROM,Strength,Balance, Coordination,Sensation,Tone, Cognition,Bed Mobility, Transfers,Gait,Activity Tolerance Assessment Summary Pt continues to require SBA for mobility and SBA to CGA for transfers and ambulation. Able to recall precautions and demonstrates safe use of FWW. Pt may go home when medically stable. Goals Bed Mobility Goal Independent Transfer Goal Independent,Front Wheeled Walker Gait Goal Independent,Front Wheel Walker Gait Distance 200 Other Goals up/down 3 steps L rail ascending mod I up/down 16 steps R rail ascending SBA Days to Meet Goals 5 Frequency of Treatment Frequency Of Treatment Twice a Day Treatment Plan Physical Therapy Treatment Plan Bed Mobility Training,Transfer Training,Gait Training, Therapeutic Exercise,Balance Retraining,Post Op Education, Discharge Planning,Hot or Cold Pack,Neuromuscular Re-ed, Coordination Retraining,Manual Therapy Precautions Lumbar Precautions Log Roll,No Twisting,Limit Bending,Lifting Restriction of 10 lbs,Gait Belt above Incisional Area Recommendations To Nursing Amount of Assist Needed Standby Assistance Discharge Recommendations PT Discharge Recommendations Home with Assistance Transportation Needs at Discharge Private Vehicle
[2021-01-11 15:40] VITALS: BP 147/68; PULSE 82; RESP 20; O2SAT 95
[2021-01-11 20:40] VITALS: BP 147/68; PULSE 87; RESP 18; TEMP 36.9; O2SAT 96
[2021-01-11] MEDS: SENNOSIDES 8.6 MG TABLET 17.2 MG PO (20:58)
[2021-01-12 00:30] VITALS: BP 149/64; PULSE 79; RESP 16; TEMP 36.3; O2SAT 97
[2021-01-12] MEDS: OXYCODONE IR 5 MG TABLET 10 MG PO ×2 (01:56→13:10)
[2021-01-12] MEDS: PANTOPRAZOLE DR 40 MG TABLET PO (05:51)
[2021-01-12] MEDS: DOXAZOSIN 2 MG TABLET PO (09:07)
[2021-01-12] MEDS: DOCUSATE 100 MG CAPSULE PO (09:07)
[2021-01-12] MEDS: lisinopriL 20 MG TABLET 40 MG PO (09:08)
[2021-01-12] MEDS: ACETAMINOPHEN 325 MG TABLET 650 MG PO (09:08)
--- NOTE | 2021-01-12 09:21 | PT.IPTN ---
Current Diagnoses Other spondylosis with radiculopathy, lumbosacral region (01/10/21) Spinal stenosis, lumbar region with neurogenic claudication (01/10/21) Surgery Performed Operation Date: 01/10/21 07:45 Actual Procedures p L3-4, L4-5 TLIF w. posterior instrumentation - Isabela Vazquez MD Physical Therapy Treatment Note M2 PT-IP Current Condition Start: 01/11/21 12:56 Freq: NEEDED Status: Active Protocol: Document 01/12/21 08:58 SP (Rec: 01/12/21 13:21 SP [id number]) Physical Therapy Current Condition Current Condition Evaluation Date 01/11/21 Treatment Diagnosis s/p L3-4,L4-5 fusion/ instrumentation; difficulty in walking Onset Date 01/10/21 Precautions Lumbar Precautions Log Roll,No Twisting,Limit Bending,Lifting Restriction of 10 lbs,Gait Belt above Incisional Area M3 PT-IP Subjective Start: 01/11/21 12:56 Freq: NEEDED Status: Active Protocol: Document 01/12/21 08:58 SP (Rec: 01/12/21 13:21 SP [id number]) Subjective Physical Therapy Visit Type Type Treatment Note Visit Start Time 08:58 Visit Stop Time 09:21 Total Visit Minutes 23 Number of DESIGN MANAGER Visits 2 Physical Therapy Visit Comments Patient Comments Pt agreeable to working with therapy. Patient Goals To return home with to assist him. Therapy Pain Assessment Pain When Pain Assessed During Mobility Pain Present Pain Present Pain Reported Location back Intensity 4 Scale Used Numeric (0 - 10) Description With Movement Pain Behaviors Facial Grimacing Pain Management Techniques Apply Cold,Distraction,Re- positioning,Timing of Activity with Medications M4 PT-IP Mobility and Gait Start: 01/11/21 12:56 Freq: NEEDED Status: Active Protocol: Document 01/12/21 08:58 SP (Rec: 01/12/21 13:21 SP [id number]) PT-Transfer Assessment Sit to and From Stand Sit to and from Stand Contact Guard Assistance, Minimal Assistance,1 Person Assistance,Use of Upper Extremities Equipment Transfer Assistive Device Gait Belt,Front Wheeled Walker Orthotic/Prosthetic Devices or Brace: No Transfers Transfer Destination Chair Transfer Technique ambulated using FWW Transfer Ability Level of Assist Standby Assistance,Contact Guard Assistance,1 Person Assistance,Use of Upper Extremities Comments Mobility Comments Pt upright in chair when arrived. Recall 3/3 precautions. Scoot to EOchair SBA heavy BUE WB on chair arms , stiff and painful in back reported. Sit>stand Min A x1 with cues for quad facilitiation coming to standing. Pt ambulated further distance into hallway step over step patterning 3 stopped stand rests during gait 160 ft total noted decrease UE WB on FWW as distance progressed. Pt returned to chair Diogenes slow descent using BUE on chair arms. Pt had call light and all needs in reach. Provided CP to LB for pain assistance. Gait Assessment Gait Gait Assistance Required: Contact Guard Assist Distance (Feet) 160 Able to Maintain Weight Bearing Status Yes During Gait Assistive Devices Assistive Device Gait Belt,Front Wheeled Walker Orthotic/Prosthetic Devices or Brace: No Gait Deviations General Gait Pattern Antalgic,Decreased Stride Length,Decreased Feet Clearance,Wide Based Gait Factors Limiting Gait Function Factors Limiting Gait Function Decreased Activity Tolerance, Decreased Strength,Limited Range of Motion,Pain Comments Gait Comments see mobility comments. Stair Climbing Assessment Comments Stair Climbing Comments Pt declined review of stair mgt, stated felt comfortable with performance with yesterday. PT-Balance Assessment Sitting Balance and Reactions Static Sitting Balance Ability Good Dynamic Sitting Balance Ability Good Standing Balance and Reactions Static Standing Balance Ability Fair Dynamic Standing Balance Ability Fair Device Used FWW M5 PT-IP Objective Assessments Start: 01/11/21 12:56 Freq: NEEDED Status: Active Protocol: Document 01/11/21 10:30 AB (Rec: 01/11/21 13:17 AB [id number]) Orientation Orientation/Cognition Level of Alertness Alert Orientation Name,Place,Situation Language Function Ability No Deficits Noted Safety Awareness Understands Safety Issues Memory Description No Deficits Noted Gross Range of Motion Lower Extremity ROM Assessment Within Functional Limits Strength Lower Extremity Strength Assessment Within Functional Limits Coordination Assessment Gross Coordination Gross Coordination WNL Sensation Assessment Comments Sensation Comments chronic numbness on B feet per pt Muscle Tone Muscle Tone WNL Yes M6 PT-IP Treatment Start: 01/11/21 12:56 Freq: NEEDED Status: Active Protocol: Document 01/12/21 08:58 SP (Rec: 01/12/21 13:21 SP [id number]) Physical Therapy Treatment Education Education Provided Precautions,Weight Bearing Status,Post-Op Packet,Safety M7 PT-IP Assessment and Plan Start: 01/11/21 12:56 Freq: NEEDED Status: Active Protocol: Document 01/12/21 08:58 SP (Rec: 01/12/21 13:21 SP [id number]) PT Summary Assessment and Plan Potential Rehabilitation Potential Good Status of Condition at Evaluation Stable Summary Impairments Pain,ROM,Strength,Balance, Coordination,Sensation,Tone, Cognition,Bed Mobility, Transfers,Gait,Activity Tolerance Progress Towards Goals Progressing Toward Goals,Slow Progress due to Pain,Slow Progress due to Activity Tolerance Assessment Summary Pt required Min A for transfers, CG>SBA during gait using fWW further into hallway 160 ft w/ 3 stop stand rests for recovery. Pt declined further stair mgt, complete yesterday and felt confident with to enter home and not needing to go upstairs and will sleep in recliner. Will assess if any further trng in pm with pre DC if needed. Goals Bed Mobility Goal Independent Transfer Goal Independent,Front Wheeled Walker Gait Goal Independent,Front Wheel Walker Gait Distance 200 Other Goals up/down 3 steps L rail ascending mod I up/down 16 steps R rail ascending SBA Days to Meet Goals 5 Frequency of Treatment Frequency Of Treatment Twice a Day Treatment Plan Physical Therapy Treatment Plan Bed Mobility Training,Transfer Training,Gait Training, Therapeutic Exercise,Balance Retraining,Post Op Education, Discharge Planning,Hot or Cold Pack,Neuromuscular Re-ed, Coordination Retraining,Manual Therapy Other Recommendations and Next Treatment bed mob, sit<>stands for Focus functional mobility I and strength, gait using FWW. Precautions Lumbar Precautions Log Roll,No Twisting,Limit Bending,Lifting Restriction of 10 lbs,Gait Belt above Incisional Area Recommendations To Nursing Amount of Assist Needed Standby Assistance,1 Person Assist Discharge Recommendations PT Discharge Recommendations Home with Assistance Transportation Needs at Discharge Private Vehicle
--- NOTE | 2021-01-12 09:25 | PC.NURSE ---
Assess- Patient is alert and oriented x3, he was just given tylenol for discomfort of 4/10. Back dressing is cdi, will change this before he goes home. Up with one person assist and walker. Patient just ambulated in the halls and is doing well. Using the urinal to void. CMS wnl and ppx2.
--- NOTE | 2021-01-12 10:17 | OT.IP.TRT ---
Current Diagnoses Other spondylosis with radiculopathy, lumbosacral region (01/10/21) Spinal stenosis, lumbar region with neurogenic claudication (01/10/21) Surgery Performed Operation Date: 01/10/21 07:45 Actual Procedures p L3-4, L4-5 TLIF w. posterior instrumentation - Isabela Vazquez MD Occupational Therapy Treatment Note M2 OT-IP Current Condition Start: 01/11/21 12:46 Freq: Status: Active Protocol: Document 01/11/21 12:46 [facility] (Rec: 01/11/21 13:03 [facility] [id number]) Occupational Therapy Current Condition Current Condition Evaluation Date 01/11/21 Treatment Diagnosis S/p L3-4, L4-5 TLIF Diagnosis Onset Date 01/10/21 Post Operative Precautions Lumbar Precautions Log Roll,No Twisting,Limit Bending,Lifting Restriction of 10 lbs,Gait Belt above Incisional Area M3 OT- IP Subjective and Pain Start: 01/11/21 12:46 Freq: Status: Active Protocol: Document 01/12/21 12:59 [facility] (Rec: 01/12/21 13:12 [facility] [id number]) OT- Subjective Occupational Therapy Visit Type Type Treatment Note Visit Start Time 10:22 Visit Stop Time 11:07 Total Visit Minutes 45 Occupational Therapy Visit Comments Patient Comments Pt wanting to shower and pt's present for caregiver training. Patient/Caregiver Goals To go home. OT Pain Assessment Pain When Pain Assessed At Rest Pain Present Pain Present Pain Reported Location back Intensity 4 Scale Used Numeric (0 - 10) M4 OT- IP ADL's Start: 01/11/21 12:46 Freq: Status: Active Protocol: Document 01/12/21 12:59 [facility] (Rec: 01/12/21 13:12 [facility] [id number]) OT [id number] General Evaluation Self-Feeding Ability Independent OT ADL-Grooming Comments OT Grooming Comments Not performed. OT ADL-Oral Care Comments Oral Care Comments Not performed. OT ADL-Dressing General Eval Upper Body Dressing Ability Independent Lower Body Dressing Ability Maximum Assistance Areas Needing Assistance Underpants/Brief,Pants/Shorts, Socks,Shoes Comments OT Dressing Comments Pt's able to assist pt for LB dressing needs. Pt able to stand with FWW while his able to assist to pull up clothing over his hips . Pt too tired to try to use the wind turbine performance engineer to practice at this time. OT ADL-Toileting Comments OT Toileting Comments Pt not having to go. Pt's aware may have to assist pt with hygiene needs , in addition use of wet wipe can help increase the ease fro hygiene needs. OT ADL-Bathing Bathing Type Bathing Type Shower General Evaluation Bathing Ability Moderate Assistance Areas Needing Assistance Wash/Dry Back,Wash/Dry Lower Extremities Comments OT Bathing Comments Suggested to practice with pt first at home to get him into and out of the shower with his clothes on and may have to use the fww and move sideways to get into the shower. Suggested pt to sponge off if too tired to shower. M5 OT- IP IADL's Start: 01/11/21 12:46 Freq: Status: Active Protocol: Document 01/11/21 12:46 [facility] (Rec: 01/11/21 13:03 [facility] [id number]) OT-Instrumental Activities of Daily Living Home Safety Awareness Awareness of Need for Assistance at Home Good Awareness Ability to Problem Solve Emergency Able to Problem Solve Situations Medication Management Medication Management Comments Pt states his will be able to assist with all his needs if needed. Money Management Money Management Comments Pt states his will be able to assist with all his needs if needed. Meal Preparation Meal Preparation Comments Pt states his will be able to assist with all his needs if needed. Bioanalyst Bioanalyst Comments Pt states his will be able to assist with all his needs if needed. M6 OT- IP Functional Cognition Start: 01/11/21 12:46 Freq: Status: Active Protocol: Document 01/12/21 12:59 [facility] (Rec: 01/12/21 13:12 [facility] [id number]) Cognitive Factors Limiting Selfcare Function Cognitive Comments Cognitive Assessment Comments Pt needing reminders to incorporate bacak precautions. Pt wanting to twist to use grab bars to help to stand as having trouble coming to stand from the toilet. Educated pt not to twist and pt also needing MODA to assist to stand. Pt has a RTS with handles at home which should make it easier to come to stand. M7 OT- IP Mobility and Balance Start: 01/11/21 12:46 Freq: Status: Active Protocol: Document 01/12/21 12:59 [facility] (Rec: 01/12/21 13:12 [facility] [id number]) OT-Transfer Assessment Sit to and From Stand Sit to and from Stand Minimal Assistance,Moderate Assistance Transfers Transfer Ability Standby Assistance,Contact Guard Assistance Technique Transfer Destination Bed,Chair,Shower Stall Transfer Technique Stand Step Pivot Devices Transfer Assistive Devices Gait Belt,Front Wheeled Walker Comments Mobility Comments Educated pt's how to elsa /doff the gait belt and able to show good safety and demonstration. Pt at times needing MODA to come up from lower surfaces here in the hospital which his not able to provide at home. Pt's surfaces at home are all adapted to be higher or good use of armrests/handles to help to stand. OT- Gait Assessment Comments Gait Ability Comments CGA/SBA with FWW OT- Balance Assessment Sitting Balance and Reactions Static Sitting Balance Ability Good Dynamic Sitting Balance Ability Good Standing Balance and Reactions Static Standing Balance Ability Fair M8 OT- IP Objective Assessments Start: 01/11/21 12:46 Freq: Status: Active Protocol: Document 01/11/21 12:46 [facility] (Rec: 01/11/21 13:03 [facility] [id number]) OT-Muscle Tone Assessment Muscle Tone WNL Yes M9 OT- IP Assessment and Plan Start: 01/11/21 12:46 Freq: Status: Active Protocol: Document 01/12/21 12:59 [facility] (Rec: 01/12/21 13:12 [facility] [id number]) OT Summary Assessment and Plan Potential Rehabilitation Potential Good Analytic Complexity at Evaluation Low Summary OT Impairments Balance,Functional Mobility, Dressing,Toileting,Bathing, Shower Transfers Progress Towards Goals Progressing Toward Goals Assessment Summary Pt's able to do caregiver training for pt's ADl needs and feels capable to assist pt for all needs. Pt to go home with his when medically stable. Pt's back dressing changed out after the shower and noted while getting dressed the new dressing coming up from the bottom, nursing notified. Goals Days to Meet Goals 1 Frequency of Treatment Frequency Of Treatment Once a Day Discharge Recommendations OT Discharge Recommendations Home with Assistance Home Equipment Needs long handled sponge Transportation Needs at Discharge Private Vehicle
--- NOTE | 2021-01-12 12:09 | PM.DS.1 ---
History of Present Illness History of Present Illness Date Patient Seen: 01/12/21 Time Patient Seen: 12:09 Chief complaint: Translaminar Interbody Fusion/Laminotomy *OPB* Narrative: the patient is complaining of mild to moderate low back pain. He denies any new numbness, tingling. No fevers, chills, night sweats. No nausea or vomiting. He plans on discharging home today. Discharge Providers Provider Date of admission: 01/10/21 06:06 Discharge Date: 01/12/21 Primary care physician: Hedy Vilchis MD Consults: 01/10/21 12:23 Consult to Respiratory Therapy Evaluate & Treat Comment: h/o SUNDAY; uses CPAP; s/p lumbar fusion Physician Instructions: Evaluate and treat 01/10/21 13:56 Consult to Occupational Therapy Evaluate & Treat Comment: Physician Instructions: Evaluate and treat Consult to Physical Therapy Evaluate & Treat Comment: Physician Instructions: Evaluate and Treat Discharge provider: Franny Tamayo PA-C Summary Hospital Course Discharge Diagnosis: 1. L3-4, L4-5 spinal stenosis with radiculopathy 2. 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 Lumbar scoliosis Hospital Course: Procedure: 1. L3-4, L4-5 Postero-lateral and posterior interbody fusion 2. L3-4, L4-5 interbody cage placement. 3. L3-4, L4-5 decompressive laminectomy with bilateral facetecomies 4. L3-4, L4-5 Posterior segmental instrumentation 5. 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 Utilization of microsurgical technique and operating microscope Same procedure as scheduled: Yes Indications: Patient has been having chronic back pain and worsening lumbar radiculopathy. Patient failed multiple conservative management with worsening pain weakness and numbness in her lower extremity.? Patient has been having difficulty performing activity of daily living.? After discussing risks benefits of treatment options, patient elected proceed with surgery. Surgeon: Isabela Vazquez Flatwork Feeder: Franny Tamayo Click Yes if Unassisted: No Anesthesia Type: General Operative Notes Closure Type: primary Specimen(s): none sent Prosthetic devices, grafts, tissues, transplants, or devices: Globus revolve screws, Rise cages Applied: catheter Estimated Blood Loss (mL): 300 Blood products transfused: none Status at Discharge Cognitive/behavioral status at discharge: oriented Functional status at discharge: uses cane/walker Overall status at discharge: patient is progressing back to baseline Exam Vital Signs (past 8 hours): Oxygen Delivery Method Room Air,CPAP Oxygen Flow Rate 0 Narrative Exam Narrative: Pleasant 80-year-old male, resting comfortably in his chair, dressed in street clothes, no acute distress. is at bedside. Incision is clean, dry, intact. Grossly intact to bilateral sensation in bilateral lower extremities. Motor function is grossly intact in bilateral lower extremities. Bilateral calves are soft, nontender to palpation. Objective Labs Result Diagrams: 01/11/21 06:50 [facility] Medical History Arthritis Heart murmur Hiatal hernia HTN (hypertension) Impaired hearing SUNDAY on CPAP Osteoarthritis Polyneuropathy Skin cancer Surgical History History of bilateral carpal tunnel release History of ear surgery (12/21/20) History of vasectomy Hx of bilateral hip replacements Hx of foot surgery Hx of repair of right rotator cuff S/P left unicompartmental knee replacement Social History household members: spouse Smoking Status: Never smoker alcohol intake: current Discharge Assessment & Plan Assessment and Plan Assessment: Stable status post lumbar fusion Plan of Treatment: limit bending lifting twisting. Weightbearing as tolerated from wheel walker. Discharge home today once cleared by PT. active bleeding has stopped and his dressing has been changed. Follow-up with Dr. Davis in 10-14 days Discharge Plan Discharge Plan Patient Disposition: Home Discharge orders & Medications Prescriptions: New acetaminophen 500 mg capsule 500 mg PO Q4H PRN (Reason: Pain, Mild (1-3)) Qty: 90 RF: 0 docusate sodium 100 mg Capsule 100 mg PO BID PRN (Reason: constipation from the narcotic pain medications) Qty: 20 RF: 0 oxycodone 5 mg Tablet 5 mg PO Q3HR PRN (Reason: Pain, Severe (7-10)) Qty: 42 RF: 0 Continued omeprazole 40 mg Capsule,Delayed Release(Dr/Ec) 40 mg PO DAILY RF: 0 aspirin [Aspirin Low Dose] 81 mg Tablet,Delayed Release (Dr/Ec) 81 mg PO DAILY RF: 0 meloxicam 7.5 mg Tablet 7.5 mg PO DAILY RF: 0 lisinopril 40 mg Tablet 40 mg PO DAILY RF: 0 doxazosin 2 mg Tablet 2 mg PO DAILY RF: 0 Discontinued acetaminophen 500 mg Tablet 1,000 mg PO BEDTIME RF: 0 Follow up/Referrals: Isabela Vazquez MD [Physician] - ( 10-14 days for postoperative visit) Hedy Vilchis MD [Primary Care Provider] - Diet/Activity/Treatments Diet: Diet as Tolerated and Regular Activity: limit bending, lifting, twisting. Weightbearing as tolerated with front wheeled walker Cold/Heat Therapy: use ice as needed for pain Skin/Wound/Dressing Care Report to your healthcare provider any signs of infection, such as:: chills, fever, night sweats, unusual drainage and unusual redness Dressing: keep dressing clean and dry. Call the office if dressing becomes wet, Soiled, saturated. Visit Report/Discharge Packet Instructions: DI for Prescription Opioid Use, DI for Transforaminal Lumbar Interbody Fusion Stand Alone Forms: Surgery Discharge Discharge Data Primary Care Provider: Hedy Vilchis
--- NOTE | 2021-01-12 13:05 | PT-IP ANOTE ---
Pt and declined any further training/ skilled mobility needs when arrived for pm tx. States will be sleeping in reclined first few days and not needed to complete 15 stairs to bed room right now and can assist needed for getting in/ out chair which seems to be most effort. BUSSER did not see for pm tx. Pt is ok to return home when medically cleared with to assist.
--- NOTE | 2021-01-12 15:03 | CM.DPC ---
DCP Discharge Home Per Ortho PA, pt medically stable to d/c home today with outpt follow up and no identified barriers to discharge. Per PT, cleared pt for safe d/c home and confirmed during attempt at PT session that spouse still agreeable with transport home and assisting pt with stairs at home and no concerns at this time. Per RN, d/c instructions provided. Plan: Patient to d/c home via spouse POV and assist today and outpt f/u with Ortho and eventual outpt PT already set up. REMINGTON Allen
== END 2021-01-12 13:15 | disposition home or self-care (01) | DRG 455 ==
LOC: OR 06:08 → AC 01-11 12:19
PROVIDERS: Admitting Provider Orthopaedic Surgery Orthopaedic Surgery of the Spine; PCP Internal Medicine; Referring Provider Orthopaedic Surgery Orthopaedic Surgery of the Spine; Visit Provider Orthopaedic Surgery Orthopaedic Surgery of the Spine
PROC: 0SG10AJ Fusion of 2 or more Lumbar Vertebral Joints with Interbody Fusion Device, Posterior Approach, Anterior Column, Open Approach (ICD-10-PCS; principal; 2021-01-10 07:45)
DX: M43.16 Spondylolisthesis, lumbar region (principal); M48.062 Spinal stenosis, lumbar region with neurogenic claudication; M47.26 Other spondylosis with radiculopathy, lumbar region; M41.9 Scoliosis, unspecified; E66.9 Obesity, unspecified; Z68.38 Body mass index [BMI] 38.0-38.9, adult; K21.9 Gastro-esophageal reflux disease without esophagitis; I10 Essential (primary) hypertension; G47.33 Obstructive sleep apnea (adult) (pediatric); Z20.822 Contact with and (suspected) exposure to COVID-19; Z23 Encounter for immunization
CPT/HCPCS: 36415; 72100; 76000; 82962; 85014; 85018; 87635; 90471; 90662; 97116; 97161; 97165; 97530; 97535; C1776; C9803; C9290; J0171; J0330; J0690; J1100; J1170; J2060; J2250; J2405; J2704; J3010; J3410